=== PATIENT | female | born 1980 | race African-American/Black ===

== ENCOUNTER 2016-06-23 17:59 | Emergency (ER) | payer MEDICAID ==
[~2016-06-23] VITALS: Ht 167.6 cm; Wt 49.9 kg
--- NOTE | 2016-06-23 18:15 | NUR ---
PT BIB SELF C/O ABD PAIN X1 DAY WITH N/V/D. PT REPORTS SHE "MIGHT" BE . ALSO REQUESTING STD TEST TODAY. DENIES DYSURIA OR HEMATURIA. RESP EVEN UNLABORED. SKIN WARM NONDIAPHORETIC. IN ER OB BED.
[2016-06-23 18:48] LABS: CALCIUM, SERUM 8.7 mg/dL (8.5-10.1); CREATININE 0.9 mg/dL (0.6-1.3); POTASSIUM 3.9 mmol/L (3.5-5.1)
[2016-06-23 19:16] LABS: BASOPHILS % (AUTO) 0.2 % (0.0-2.0); EOSINOPHILS # (AUTO) 0.1 /CMM (0.0-0.7); EOSINOPHILS % (AUTO) 1.4 % (0.0-6.0); HEMATOCRIT 47 % (33-45); HEMOGLOBIN 15.1 g/dL (11.5-14.8); LYMPHOCYTES # (AUTO) 0.8 /CMM (0.8-4.8); MEAN CORPUSCULAR HEMOGLOBIN 30 PG (26.0-33.0); MEAN CORPUSCULAR HGB CONC 32 g/dl (31.0-36.0); MEAN CORPUSCULAR VOLUME 95 fL (82-100); MONOCYTES # (AUTO) 0.6 /CMM (0.1-1.30); NEUTROPHILS # (AUTO) 7.8 /CMM (1.8-8.9); NEUTROPHILS % (AUTO) 83.4 % (43.0-81.0); PLATELET COUNT (AUTO) 336 /CMM (150-450); RDW COEFFICIENT OF VARIATION 14.8 (11.5-15.0); RED BLOOD CELL COUNT(AUTO) 4.96 MIL/uL (4.0-5.2); WHITE BLOOD COUNT (AUTO) 9.4 K/uL (4.3-11.0)
[2016-06-23] MEDS ORDERED: CEFTRIAXONE 500 MG VIAL IM ONE (20:00)
[2016-06-23] MEDS ORDERED: AZITHROMYCIN 250 MG TABLET PO ONE (20:00)
[2016-06-23] MEDS ORDERED: CEFTRIAXONE 500 MG VIAL ONE (20:26)
[2016-06-23] MEDS ORDERED: LIDOCAINE /MPF 1% VIAL 5 ML VIAL ONE (20:26)
[2016-06-23] MEDS ORDERED: AZITHROMYCIN 250 MG TABLET ONE (20:30)
--- NOTE | 2016-06-23 20:40 | NUR ---
Patient discharged to home in stable condition. Written and verbal after care instructions given. Patient verbalizes understanding of instruction. AMBULATORY WITH STEADY GAIT.
[2016-06-23 20:45] VITALS: BP 127/86
== END 2016-06-23 20:46 | disposition home or self-care (01) ==
LOC: ER 18:00
DX: O20.8 Other hemorrhage in early pregnancy (principal); O21.9 Vomiting of pregnancy, unspecified; R11.0 Nausea; J45.901 Unspecified asthma with (acute) exacerbation; J45.909 Unspecified asthma, uncomplicated; F17.210 Nicotine dependence, cigarettes, uncomplicated; Z3A.01 Less than 8 weeks gestation of pregnancy
CPT/HCPCS: 36415; 76856-TC; 80048-TC; 84702-TC; 85025-TC; 87070-TC; 87081-TC; 87110-TC; 87210-TC; A4606; J0696; J3490; Z7610

== ENCOUNTER 2016-09-27 13:05 | Emergency (ER) | payer MEDICAID ==
[~2016-09-27] VITALS: Ht 167.6 cm; Wt 52.2 kg
--- NOTE | 2016-09-27 13:10 | NUR ---
PT TO ED ROOM 21. "I HAVE A BUMP ON MY VAGINA AFTER SHAVING", PER PATIENT. A/A/O. NAD. VS WNL. AMBULATORY WITH STEADY GAIT. CHANGED TO GOWN. SIDE RAILS UP. HOB ELEVATED. SEEN AND EVALUATED BY ANIKET CASPER.
[2016-09-27] MEDS ORDERED: AZITHROMYCIN 250 MG TABLET PO STA (13:19)
[2016-09-27] MEDS ORDERED: CEFTRIAXONE 1 G VIAL IM ONE (13:30)
[2016-09-27] MEDS ORDERED: CEPHALEXIN MONOHYDRATE 500 MG CAPSULE PO STA (13:34)
[2016-09-27] MEDS ORDERED: SULFAMETH/TRIMETH 800/160 MG 1 UDTAB TABLET PO STA (13:34)
[2016-09-27] MEDS ORDERED: AZITHROMYCIN 250 MG TABLET ONE (13:34)
[2016-09-27] MEDS ORDERED: LIDOCAINE /MPF 1% VIAL 5 ML VIAL ONE (13:35)
[2016-09-27] MEDS ORDERED: CEFTRIAXONE 500 MG VIAL ONE ×2 (13:35→13:57)
--- NOTE | 2016-09-27 13:55 | NUR ---
I&D AT BEDSIDE BY PT TOLERATED WELL. Addendum: 09/27/16 at 1404 by LAURA I&D BY ANIKET CASPER
[2016-09-27] MEDS ORDERED: METRONIDAZOLE 500 MG TABLET ONE (13:56)
[2016-09-27] MEDS ORDERED: SULFAMETH/TRIMETH 800/160 MG 1 UDTAB TABLET PO ONE (13:56)
[2016-09-27] MEDS ORDERED: DOXYCYCLINE HYCLATE (100 MG) 100 MG TABLET ONE (13:57)
[2016-09-27] MEDS ORDERED: CEPHALEXIN MONOHYDRATE 500 MG CAPSULE PO ONE (13:57)
[2016-09-27] MEDS: METRONIDAZOLE 500 MG TABLET PO STA (14:17)
[2016-09-27] MEDS: CEFTRIAXONE 1 G VIAL IM ONE (14:17)
[2016-09-27] MEDS: DOXYCYCLINE HYCLATE (100 MG) 100 MG TABLET PO STA (14:18)
[2016-09-27] MEDS: LIDOCAINE 1%-EPI 1:100,000 50 ML VIAL IJ ONE (14:18)
[2016-09-27 14:51] LABS: BILIRUBIN,URINE Negative (NEGATIVE); BLOOD, URINE Small Ery/uL (NEGATIVE); COLOR,URINE Yellow (YELLOW); KETONES,URINE Trace (NEGATIVE); LEUKOCYTE ESTERASE ,URINE Trace (NEGATIVE); NITRITE, URINE Negative (NEGATIVE); PH,URINE 5.5 (5.0-8.0); PROTEIN,URINE Trace mg/dl (NEGATIVE); UGLUCOSE Negative (NEGATIVE); UROBILINOGEN,URINE 0.2 EU/dL (0.2)
[2016-09-27 14:52] LABS: APPEARANCE,URINE Hazy (CLEAR)
[2016-09-27 14:53] LABS: PREGNANCY TEST URINE QUAL POSITIVE (NEGATIVE)
[2016-09-27 14:57] LABS: BACTERIA,URINE Rare /HPF (None Seen); MUCUS,URINE Few /LPF (None Seen); SQUAMOUS EPITHELIAL CELL,UR Few /HPF (None Seen)
[2016-09-27] MEDS ORDERED: IBUPROFEN 600 MG TABLET PO ONE (15:03)
[2016-09-27] MEDS: IBUPROFEN 600 MG TABLET PO STA (15:10)
--- NOTE | 2016-09-27 15:30 | NUR ---
PT MEDICATED ORDERED.
[2016-09-27] MEDS ORDERED: ACETAMINOPHEN 325 MG TABLET ONE (15:39)
[2016-09-27 16:18] LABS: BASOPHILS % (AUTO) 0.4 % (0.0-2.0); EOSINOPHILS # (AUTO) 0.3 /CMM (0.0-0.7); HEMATOCRIT 35 % (33-45); HEMOGLOBIN 12.1 g/dL (11.5-14.8); LYMPHOCYTES # (AUTO) 1.8 /CMM (0.8-4.8); LYMPHOCYTES % (AUTO) 16.6 % (20.0-44.0); MEAN CORPUSCULAR HEMOGLOBIN 32 PG (26.0-33.0); MEAN CORPUSCULAR HGB CONC 35 g/dl (31.0-36.0); MEAN CORPUSCULAR VOLUME 92 fL (82-100); MONOCYTES # (AUTO) 0.7 /CMM (0.1-1.30); MONOCYTES % (AUTO) 6.2 % (2.0-12.0); NEUTROPHILS # (AUTO) 7.8 /CMM (1.8-8.9); NEUTROPHILS % (AUTO) 73.8 % (43.0-81.0); PLATELET COUNT (AUTO) 281 /CMM (150-450); RDW COEFFICIENT OF VARIATION 12.9 (11.5-15.0); RED BLOOD CELL COUNT(AUTO) 3.76 MIL/uL (4.0-5.2); WHITE BLOOD COUNT (AUTO) 10.6 K/uL (4.3-11.0)
--- NOTE | 2016-09-27 16:25 | NUR ---
PT MEDICATED ORDERED.
[2016-09-27] MEDS: ACETAMINOPHEN 325 MG TABLET PO STA (16:40)
[2016-09-27] MEDS: AZITHROMYCIN 250 MG TABLET PO ONE (17:31)
--- NOTE | 2016-09-27 17:34 | NUR ---
Patient discharged to home in stable condition. Written and verbal after care instructions given. Patient verbalizes understanding of instruction. Pt ambulatory with a steady gait.
[2016-09-27 17:36] VITALS: BP 131/75
[2016-09-29 15:11] LABS: CHLAMYDIA TRACHOMATIS NAA Negative (Negative)
[2016-09-29 16:13] LABS: *NEISSERIA GONORRHOEAE NAA Positive (Negative)
== END 2016-09-27 17:37 | disposition home or self-care (01) ==
LOC: ER 13:07
DX: O36.4XX0 Maternal care for intrauterine death, not applicable or unspecified (principal); O98.22 Gonorrhea complicating childbirth; Z3A.08 8 weeks gestation of pregnancy; F17.210 Nicotine dependence, cigarettes, uncomplicated; J45.909 Unspecified asthma, uncomplicated; Z98.890 Other specified postprocedural states; Z37.9 Outcome of delivery, unspecified
CPT/HCPCS: 36415; 76805-TC; 81000-TC; 84702-TC; 84703-TC; 85025-TC; 87210-TC; 87491; 87591; A4606; A6402; A6403; J0696; J3490; Z7610

== ENCOUNTER 2016-11-18 11:36 | Emergency (ER) | payer MEDICAID ==
[~2016-11-18] VITALS: Ht 167.6 cm; Wt 54.4 kg
--- NOTE | 2016-11-18 11:46 | NUR ---
PT AMBULATORY TO ER BED 10. C/O RUE AND L JAW PAIN S/P FELL OFF HER SCOOTER. DENIES KO. ABRASION NOTED TO R SHOULDER. 12/13 PAIN. VSS. AWAITING MD GUERRA.
--- NOTE | 2016-11-18 12:01 | NUR ---
DR EASTMAN AT BEDSIDE FOR EVAL.
[2016-11-18] MEDS ORDERED: ONDANSETRON 4 MG TAB.RAPDIS ONE (12:11)
[2016-11-18] MEDS ORDERED: HYDROCODONE/APAP 5/325MG 1 EACH TABLET ONE (12:11)
[2016-11-18] MEDS: HYDROCODONE/APAP 5/325MG 1 EACH TABLET PO ONE (12:12)
[2016-11-18] MEDS: ONDANSETRON 4 MG TAB.RAPDIS PO ONE (12:13)
--- NOTE | 2016-11-18 12:21 | NUR ---
UNABLE TO PROVIDE URINE SAMPLE. STATES NOT AND WILLING TO SIGN PREG WAIVER. RADIOLOGY MADE AWARE.
[2016-11-18] MEDS ORDERED: TDAP [DIPH/PERTUSSIS/TET] 0.5 ML VIAL IM ONE (12:31)
[2016-11-18] MEDS: TDAP [DIPH/PERTUSSIS/TET] 0.5 ML VIAL IM ONE (12:35)
--- NOTE | 2016-11-18 12:38 | NUR ---
PT TO RADIOLOGY FOR XRAY VIA WHEELCHAIR.
--- NOTE | 2016-11-18 13:51 | NUR ---
Patient discharged to home in stable condition. Written and verbal after care instructions given. Patient verbalizes understanding of instruction.
[2016-11-18 13:57] VITALS: BP 120/83
== END 2016-11-18 14:14 | disposition home or self-care (01) ==
LOC: ER 11:41
DX: S52.611A Displaced fracture of right ulna styloid process, initial encounter for closed fracture (principal); S40.211A Abrasion of right shoulder, initial encounter; F17.210 Nicotine dependence, cigarettes, uncomplicated; J45.909 Unspecified asthma, uncomplicated; Z98.890 Other specified postprocedural states; V00.831A Fall from motorized mobility scooter, initial encounter; Y93.89 Activity, other specified; Y92.89 Other specified places as the place of occurrence of the external cause; Y99.9 Unspecified external cause status
CPT/HCPCS: 70110-TC; 73030-TC; 73090-TC; 73130-TC; 90715; A4606; Q0162; Z7610

== ENCOUNTER 2016-11-21 16:37 | Emergency (ER) | payer MEDICAID ==
[~2016-11-21] VITALS: Ht 167.6 cm; Wt 54.4 kg
[2016-11-21 16:37] VITALS: BP 114/56
== END 2016-11-21 17:25 | disposition home or self-care (01) ==
LOC: ER 16:43
DX: Z76.0 Encounter for issue of repeat prescription (principal); J45.909 Unspecified asthma, uncomplicated
CPT/HCPCS: 99281; A4606; Z7610; Z7502

== ENCOUNTER 2023-08-10 22:14 | Emergency (ER) | payer MEDICAID, OTHER ==
[~2023-08-10] VITALS: Ht 167.6 cm; Wt 54.4 kg
[2023-08-10] MEDS ORDERED: ONDANSETRON HCL/PF 4 MG/2 ML VIAL ONE (22:52)
[2023-08-10] MEDS ORDERED: CEFTRIAXONE 1GM BAG (ER ONLY) 50 ML IV ONE (22:52)
[2023-08-10] MEDS ORDERED: MORPHINE SULFATE INJ 4 MG/ML DISP.SYRIN ONE (22:53)
[2023-08-10] MEDS: ONDANSETRON HCL/PF 4 MG/2 ML VIAL IVP ONE (23:05)
[2023-08-10] MEDS: MORPHINE SULFATE INJ 2 MG/ML DISP.SYRIN IV ONE (23:08)
[2023-08-10] MEDS: CEFTRIAXONE 1GM BAG (ER ONLY) 1 GM/50 ML PIGGYBACK IV ONE (23:10)
[2023-08-11] MEDS ORDERED: MORPHINE SULFATE INJ 4 MG/ML DISP.SYRIN ONE (03:37)
[2023-08-11] MEDS: MORPHINE SULFATE INJ 2 MG/ML DISP.SYRIN IV ONE (03:40)
[2023-08-11] MEDS ORDERED: HYDR-4303 PO (08:14)
[2023-08-11] MEDS ORDERED: AMOX-430 PO (08:14)
[2023-08-11 08:20] VITALS: BP 140/66; TEMP 98.5; O2SAT 98
== END 2023-08-11 08:21 | disposition left against medical advice (07) ==
LOC: ER 22:15
DX: Z89.022 Acquired absence of left finger(s) (principal); J45.909 Unspecified asthma, uncomplicated; Z98.890 Other specified postprocedural states
CPT/HCPCS: 73140-TC; J0696; J2270; J2405

== ENCOUNTER 2025-02-18 06:30 | Emergency (ER) | payer SELFPAY ==
[~2025-02-18] VITALS: Ht 167.6 cm; Wt 52.2 kg
[~2025-02-18 06:30] MED LIST: AMOX-430 PO; HYDR-4303 PO
[2025-02-18 06:54] VITALS: BP 138/99; TEMP 98.3; O2SAT 98
[2025-02-18] MEDS ORDERED: METR500T PO (07:31)
[2025-02-18] MEDS ORDERED: CLIN300C12 PO (07:31)
== END 2025-02-18 07:56 | disposition home or self-care (01) ==
LOC: ER 06:32
DX: N76.0 Acute vaginitis (principal); K02.9 Dental caries, unspecified; B96.89 Other specified bacterial agents as the cause of diseases classified elsewhere; J45.909 Unspecified asthma, uncomplicated; Z91.048 Other nonmedicinal substance allergy status; Z60.2 Problems related to living alone